=== PATIENT | female | born 1985 | race Caucasian/White ===

== ENCOUNTER 2020-12-24 14:54 | Emergency (ER) | payer OTHER, SELFPAY ==
--- NOTE | ~2020-12-24 | XR_ITS ---
EXAMINATION: XR chest 2V DATE: 12/24/2020 15:48 INDICATION: Cough and wheezing TECHNIQUE: PA and lateral views of the chest are obtained. COMPARISON: None available FINDINGS: The lungs are free of acute opacities. There is no pleural effusion or pneumothorax. The ca rdiomediastinal silhouette is normal. The visualized bones and soft tissues are unremarkable. IMPRESSION: 1. No acute cardiopulmonary abnormality. Reviewed, dictated and finalized at location A.
--- NOTE | 2020-12-24 15:17 | ED.URI ---
HPI - URI/Sore Throat General Chief Complaint: Upper Respiratory Infection Stated Complaint: sore throat,dizzy Time Seen by Provider: 12/24/20 15:17 Source: patient Mode of arrival: ambulatory Limitations: no limitations History of Present Illness HPI Narrative: 35-year-old female presents to the [facility] with complaints of sore throat, congestion and respiratory symptoms x3 weeks. Strong productive cough. States 3 days ago she lost her voice. States that she called off work. Denies Fevers but having chills. Related Data Allergies Allergy/AdvReac Type Severity Reaction Status Date / Time azithromycin Allergy Unknown Dyspnea / Verified 12/24/20 15:35 SOB Penicillins Allergy Unknown Unknown Verified 12/24/20 15:35 docusate AdvReac Unknown CAUSES Verified 12/24/20 15:35 CONSTIPATION Review of Systems Review of Systems: Narrative: CONSTITUTIONAL: Denies fever. reports chills, or sweats. EYES: Denies visual changes, redness, or discharge. ENT: Reports rhinorrhea, congestion, sore throat, or otalgia. CARDIOVASCULAR: Denies chest pain, palpitations, or edema. RESPIRATORY: Reports cough without dyspnea. GASTROINTESTINAL: Denies abdominal pain, nausea, vomiting, or diarrhea. MUSCULOSKELETAL: Denies back pain, joint pain, or myalgia. NEUROLOGIC: Denies headache, numbness, or weakness. PSYCHIATRIC: Denies anxiety or depression. All other systems reviewed are negative, except as documented in HPI. PMFSH Comments At the time of my signature, I reviewed and agree with the nursing past medical, surgical, social, and family history. There is no relevant family history pertinent to the patient complaint. Exam Narrative: Exam Narrative: GENERAL: This is a well-nourished, well-developed patient, in no apparent distress. HEAD: normocephalic, atraumatic. EYES: PERRL. Sclera clear/white. Vision is grossly intact. EARS: External ears normal, auditory canals clear and without drainage, TMs normal without perforation. Hearing grossly intact. NOSE: External nose normal with thick clear nasal discharge, nares with redness and injection. THROAT: Mucous membranes moist, posterior pharynx clear. NECK: Neck supple, non-tender without lymphadenopathy, masses or thyromegaly. CARDIOVASCULAR: Regular rate and rhythm without murmurs, gallops, or rubs. RESPIRATORY: Clear but diminished lower lobes to auscultation. Breath sounds equal bilaterally. No wheezes, rales, or rhonchi. GASTROINTESTINAL: Abdomen soft, non-tender, nondistended. SKIN: warm, Dry, intact with no suspicious lesions or rash, good texture and turgor. NEURO: awake, alert, and oriented to person, place and time. There were no obvious focal neurologic abnormalities. EXTREMITIES: No joint tenderness, effusion, or edema noted. . BACK: Nontender without deformity. Course Course Emergency Course: After breathing treatment patient states that she feels much better, voice returned Vital Signs Vital signs: Vital Signs Temperature 97.7 F 12/24/20 15:25 Pulse Rate 96 12/24/20 15:25 Respiratory Rate 18 12/24/20 15:25 Blood Pressure 110/78 12/24/20 15:25 Pulse Oximetry 96 12/24/20 15:25 Temperature 97.7 F 12/24/20 15:25 Pulse Rate 98 12/24/20 16:22 Respiratory Rate 20 12/24/20 16:22 Blood Pressure 110/78 12/24/20 15:25 Pulse Oximetry 98 12/24/20 16:22 Reviewed MDM - URI/Sore Throat MDM Narrative Medical decision making narrative: Discharge instructions reviewed with patient, as well as provided in writing per nursing staff. The instructions also include specific and strict return/GO TO THE ER as well as f/u information. All questions have been answered, and the patient deny any further questions with discharge and discharge plan. Differential Diagnosis Differential diagnosis: Likely upper respiratory infection, sinusitis, viral infection and bronchitis Lab Data Labs: Lab Results 12/24/20 12/24/20 Range/Units 15:19 15:50 SARS-CoV-2 RNA
[2020-12-24 15:25] VITALS: BP 110/78; PULSE 96; RESP 18; TEMP 36.5; O2SAT 96
[2020-12-24] MEDS: ALBUTEROL SULFATE NEB 2.5 MG/3 ML INH INHALATION (15:55)
[2020-12-24] MEDS: IPRATROPIUM BR 0.02% INH SOLN 0.5 MG/2.5 ML VIAL INHALATION (15:55)
[2020-12-24 16:22] VITALS: PULSE 98; RESP 20; O2SAT 98
[2020-12-25 19:43] LABS: SARS-CoV-2 RNA PCR Negative
== END 2020-12-24 16:30 | disposition home or self-care (01) ==
PROVIDERS: Emergency Provider Nurse Practitioner
DX: J32.9 Chronic sinusitis, unspecified (principal); J40 Bronchitis, not specified as acute or chronic; Z20.822 Contact with and (suspected) exposure to COVID-19
CPT/HCPCS: 71046; 87081; 87426; 87880; 94640; 99203; C9803; G0463; U0003; U0005

== ENCOUNTER 2025-03-19 18:48 | Emergency (ER) | payer OTHER, SELFPAY ==
--- OUTSIDE RECORDS SUMMARY | 2025-03-19 18:50 | XMS_ITS ---
Author Organization [facility]ly [facility] Address [address] [place] [address] Care Team Providers Care Secondary Special Education Teacher Name Role Phone TashScott hollidayhanie Primary Care Provider [phone] Jose Silva Unavailable [phone] REASON FOR VISIT WRU aT Social History PRAPARE Question Answer Notes Date Completed/Updated: 03/16/2025 What is your current housing situation? I do not have housing (staying with others, in a hotel, in a nursing home, living outside on the street, on a beach, or in a park) Are you worried about losing your housing? No What is the highest level of school that you have finished? More than high school What is your current work situation? Oth erwise unemployed but not seeking work (ex. student, retired, disabled, unpaid primary resident care associate) In the past year, have you o r any family members you live with been unable to get any of the following when it was really needed? Check all that apply Phone Has lack of transportation k ept you from medical appointments, meetings, work or from getting things needed for daily living? Yes, it has kept me from medical appointments or from getting my medications,Yes, it has kept me from non-medical meetings, appointments, work, or getting things needed for daily living How often do you see or talk to people that you care about and feel close to? (For example: talking to friends on the phone, visiting friends or family, going to yarsanism or club meetings) More than 5 times a week How stressed are you? Stress is when someone feels tense, nervous, anxious, or can\t sleep at night because their mind is troubled Quite a bit In the past year have you sp ent more than 2 nights in a row in a long-term, usp, alf center, or juvenile correctional facility? Yes What was your release date? 03/16/2025 Are you a refugee? I choose not to answer this q uestion What country are you from? I choose not to answe r this question Do you feel physically and e motionally safe where you currently live? No In the past year, have you b een afraid of your partner or ex-partner? No PRAPARE Score: 10 Encounters Encounter Location Date Provider Diagnosis [address] [address] 03/16/2025 Jose Silva Assessments Encounter Date Diagnosis (ICD Code) Assessment Notes Treatment Notes Treatment Clinical Notes Section Notes 03/16/2025 Other Clinician met w [facility] client to assess needs for residential services. Clinician gathered information regarding historical presentation of mental health and substance use symptoms including withdrawal, HIV Risk assessment, psychiatric hospitalization history and presenting concern. Clinician conducted PHQ9 and CSSRS assessments as well as social drivers of health screening for the purposes of identifying additional service needs. Plan Of Treatment Treatment Notes Assessment Notes Other Clinician met with ana enriquez to assess needs for residential services. Clinician gathered information regarding historical presentation of mental health and substance use symptoms including withdrawal, HIV Risk assessment, psychiatric hospitalization history and presenting concern. Clinician conducted PHQ9 and CSSRS assessments as well as social drivers of health screening for the purposes of identifying additional service needs. Progress Notes * Ellie ZHANGDOB: [birth year] (40 yo F)Acc No.[id number]:03/16/2025 UNLOCKED PROGRESS NOTE Patient: Ellie AYALA Provider: Bertin Silva :1985 A ge:40 Y S ex:Female Date:03/16/2025 Address:[address] [place], [place] [id number] Pcp:Gayle Brody Subjective: * Chief Complaints: * 1 . WRU aTBC. * HPI: D epression Screening: PHQ-9 L ittle interest or pleasure in doing things N ot at all, F eeling down, depressed, or hopeless N ot at all, T rouble falling or staying asleep, or sleeping too much S everal days, F eeling tired or having little energy N ot at all, P oor appetite or overeating N ot at all, F eeling bad about yourself or that you are a failure, or have let yourself or your family down N ot at all, T rouble concentrating on things, such as reading the newspaper or watching television N ot at all, M oving or speaking so slowly that other people could have noticed; or the opposite, being so fidgety or restless that you have been moving around a lot more than usual N ot at all, T houghts that you would be better off or of hurting yourself in some way N ot at all, T otal Score 1 ,?Interpretation M inimal Depression. S creening: [place] Suicide Severity Rating Scale (LF) D o you want to initiate with S creener form, 1 . Wish to be : Have you wished you were or wished you could go to sleep and not wake up? N o, 2 . Suicidal Thoughts: Have you actually had any thoughts of killing yourself? N o, 6 . Suicide Behavior Question: Have you ever done anything,started to do anything, or prepared to end your life? N o, I nterpretation: L ow Risk. P sychiatric Assessment - Current Symptoms: Primary concern today A dmitting today for [facility] . O [place] of Mental Health Symptoms A nxiety, Manic depressive , insonmina. . H istory of Psychiatric Hospitalizations x . H istory of Psychiatric and Behavioral Health Treatment P ast treament on medication. S ubstance Use: Current Use Patterns x . S ubstance of Choice x .?History of substance use I CE was in long-term and came, off and on for years. Clean for [address] treatment. In long-term for 2 months. . H x of Withdrawal n ausea, diahrea, and shakes. . H IV Risk Assessment Screening: Required for Residential Admits. A ssessment of Social Determinants of Health::: Has A PRAPARE Been Completed In The Past Year? H as a PRAPARE Been Completed In The Past Year? Y es, W as It Completed Today Using SmartForm? N o.? a TBC For Substance Use Services: Who Is Your Primary Care Provider? D o You Have A Primary Care Provider? N o Est with [facility], D ate of last physical exam 0 03/2025. D o You Have A Psychiatric Provider? D o You Have A Psychiatric Provider? N o Est with [facility]. D o You Have Any Other Professional Supports? D o You Have Any Other Professional Supports Y es.?Consent Forms Completed C onsent Forms C onsent To Treat, Health Care Providers, Emergency Contact, Probation/[place]. * Medical History: * Social History: S ocial Determinants: Edinson Patterson ate Completed/Updated: 0 03/16/2025, W hat is your current housing situation? I do not have housing (staying with others, in a hotel, in a nursing home, living outside on the street, on a beach, or in a park), A re you worried about losing your housing? N o, W hat is the highest level of school that you have finished? M ore than high school, W hat is your current work situation? O therwise unemployed but not seeking work (ex. student, retired, disabled, unpaid primary resident care associate), I n the past year, have you or any family members you live with been unable to get any of the following when it was really needed? Check all that apply P madeline, H as lack of transportation kept you from medical appointments, meetings, work or from getting things needed for daily living? Y es, it has kept me from medical appointments or from getting my medications,Yes, it has kept me from non-medical meetings, appointments, work, or getting things needed for daily living, H ow often do you see or talk to people that you care about and feel close to? (For example: talking to friends on the phone, visiting friends or family, going to yarsanism or club meetings) M ore than 5 times a week, H ow stressed are you? Stress is when someone feels tense, nervous, anxious, or can\t sleep at night because their mind is troubled Q uite a bit, I n the past year have you spent more than 2 nights in a row in a long-term, usp, alf center, or juvenile correctional facility? Y es, W hat was your release date? 0 03/16/2025, A re you a refugee? I choose not to answer this question, W hat country are you from? I choose not to answer this question, D o you feel physically and emotionally safe where you currently live? N o, I n the past year, have you been afraid of your partner or ex-partner? N o, P RAPARE Score: 1 0. Objective: * Vitals: * Examination: M ental Status Exam: ATTENTION AND CONCENTRATION x . APPEARANCE x . ATTITUDE AND BEHAVIOR x . EYE CONTACT x . AFFECT x . MOOD x . INSIGHT x . JUDGMENT x . G eneral Examination: E xplanation of presentation/need (staff to free text). Assessment: Plan: * Treatment: * Procedure Codes: 9 0791 PSYCH DIAGNOSTIC EVALUATION, Modifiers: AJ , T1016 Case management, CHS08 aT Service, CHS11 Insurance Application Assistance, CHS12 Housing Assistance, CHS13 Referring to Basket Maker * * Electronic signature of Madelyn Silva on 03/19/2025 at 06:50 PM CDT Sign off status: Pending * Provider: Bertin Silva Date: 0 03/16/2025 Generated for Bebe francisco/Carmen/Efren on: 0 03/19/2025 06:50 PM CDT History and Physical Notes * HPI (History of Present Illness) Category Sub-Category Detail Notes Category Not es Depression Screening PHQ-9 Little inte rest or pleasure in doing things: Not at all Feeling down, depressed, or hopeless: No t at all Trouble falling or staying asleep, or sl eeping too much: Several days Feeling tired or having little energy: N ot at all Poor appetite or overeating: Not at all Feeling bad about yourself o r that you are a failure, or have let yourself or your family down: Not at all Trouble concentrating on thi ngs, such as reading the newspaper or watching television: Not at all Moving or speaking so slowly that other people could have noticed; or the opposite, being so fidgety or restless that you have been moving around a lot more than usual: Not at all Thoughts that you would be b dari off or of hurting yourself in some way: Not at all Total Score: 1 Interpretation: Minimal Depression Psychiatric Assessment - Current Symptoms Primary concern today Admitting today for [facility] 28 day program Overview of Mental Health Symptoms Anxie ty, Manic depressive , insonmina. History of Psychiatric Hospitalizations x History of Psychiatric and B ehavioral Health Treatment Past treament on medication Substance Use History of substance use [place] was in long-term and came, off and on for years. Clean for [address] treatment. In long-term for 2 months. Hx of Withdrawal nausea, diahrea, and shakes. Substance of Choice x Current Use Patterns x Screening [place] Suicide Sev erity Rating Scale (LF) Do you want to initiate with: Screener form 1. Wish to be : Have you wished you were or wished you could go to sleep and not wake up?: No 2. Suicidal Thoughts: Have you actually had any thoughts of killing yourself?: No 6. Suicide Behavior Question: Have you ever done anything,started to do anything, or prepared to end your life?: No Interpretation:: Low Risk HIV Risk Assessment Screening Required for Residential Admits Assessment of Social Determinants of Health:: Has A PRAPARE Been Completed In The Past Year? Has a PRAPARE Been Completed In The Past Year?: Yes Was It Completed Today Using [employer]?: No aT For Substance Use Services Who Is Your Primary Care Provider? Do You Have A Primary Care Provider?: No Est with [facility] Date of last physical exam: 03/2025 Do You Have A Psychiatric Provider? Do Y ou Have A Psychiatric Provider?: No Est with [facility] Do You Have Any Other Profes sional Supports? Do You Have Any Other Professional Supports: Yes Consent Forms Completed Consent Forms: C onsent To Treat, Health Care Providers, Emergency Contact, Probation/[place] Examination Category Sub-Category Detail Notes Category Not es General Examination Explanat ion of presentation/need (staff to free text) Mental Status Exam ATTENTION AND CONCENTRATION x APPEARANCE x ATTITUDE AND BEHAVIOR x EYE CONTACT x AFFECT x MOOD x INSIGHT x JUDGMENT x
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
--- OUTSIDE RECORDS SUMMARY | 2025-03-19 18:50 | XMS_ITS | Clinical Summary ---
Author Organization [facility] Address [address] [place] [address] Care Team Providers Care Carburetor Mechanic Name Role Phone Unavailable Primary Care Provider Unavailabl e Source Comments [facility],non-owned Affiliates and Associated Physician Practices is amultiple site organization consisting of ambulatory clinics and hospital sitesin [place], [place], [place] and [place]. This disclosure is being madepursuant to the Care Everywhere program and may not contain all information available regarding this patient. Last updated 18.[facility] [employer] Social History Tobacco Use Types Packs/Day Years Used Date Smoking Tobacco: Never Assessed Comments Unknown Sex and Gender Information Value Date Recorded Sex Assigned at Female 08/10/2021 3:25 AM LAP MAKER Legal Sex Female 5:53 PM LAP MAKER Gender Identity Female 08/10/2021 3:25 AM LAP MAKER Sexual Orientation Straight 08/10/2021 3: 25 AM LAP MAKER Plan of Treatment Health Maintenance Due Date Last Done Comments LIPID TESTING 1985 MAMMOGRAM 1985 HIV SCREENING 02/02/2000 HEPATITIS C SCREENING 01/28/2003 DTAP/TDAP/TD VACCINES (1 - Tdap) 02/02/2004 HEPATITIS B VACCINE (1 of 3 - 19+ 3-dose series) 02/02/2004 COVID-19 VACCINE (2023-2 5 season) 2024 DEPRESSION SCREENING 09/15/2024 INFLUENZA VACCINE (Season Ended) 2025 ZOSTER VACCINE (1 of 2) 2035 HIB VACCINE Aged Out No longer eligi ble based on patient's age to complete this topic HPV VACCINE Aged Out No longer eligi ble based on patient's age to complete this topic MENINGOCOCCAL (Group B) VACC INE SHARED DECISION-MAKING Aged Out No longer eligibl e based on patient's age to complete this topic MENINGOCOCCAL GROUPS A/C/Y/W VACCINE Aged Out No longer eligible b ased on patient's age to complete this topic PNEUMOCOCCAL VACCINE Aged Out No long er eligible based on patient's age to complete this topic [place] [address] [address] [place] [address] MEDICAID - OUT OF [facility]
--- OUTSIDE RECORDS SUMMARY | 2025-03-19 18:50 | XMS_ITS | Patient Health Record ---
Author Organization [facility] Address [address] [place] [address] Care Team Providers Care Hand Scraper Name Role Phone Gayle Brody Primary Care Provider Jose Silva Unavailable Allergies Allergen (clinical drug ingredient) Drug/Non Drug Allergy documented on EMR Reaction Allergy Type Onset Date Status diphenhydramine Benadryl (uncoded) Hives Allergy Active doxycycline Doxcycline (uncoded) Dizziness Allergy Active azithromycin Zpak (uncoded) Swelling, rash Allergy Active Results Component Value Reference Range Notes 14 Panel Urine Drug Screen Reviewed date:03/16/2025 12:02:25 PM Interpretation: Performing Lab: Notes/Report: THC neg VAMSI neg MOP (OPI) neg AMP neg MET neg BAR neg BZO neg MDMA neg MTD neg OXY neg PCP neg BUP neg TCA neg FTY neg Breathalyzer Reviewed date:03/16/2025 12:00:31 PM Interpretation: Performing Lab: Notes/Report: HERVE 0.000 Test, Urine Reviewed date:03/16/2025 12:01:05 PM Interpretation: Performing Lab: Notes/Report: Test, Urine negative Negative - Negative Reason For Referral No Information Medications Medication SIG (Take, Route, Frequency, Duration) Notes Start Date End Date Status Sulfamethoxazole-Trimetho prim 800-160 MG 1 tablet Orally twice a day; Duration: 7 days Active Multi Vitamin - 1 tablet Orally Once a day; Duration: 30 days 03/16/2025 Active Melatonin 5 MG 1 tablet at bedtime as needed Orally Once a day; Duration: 30 days 03/16/2025 Active Nicotine 14 MG/24HR 1 patch to skin Transdermal Once a day, removing at bedtime; Duration: 14 days 03/16/2025 Active hydrOXYzine Pamoate 25 MG 1-2 capsules O rally every 4 hours as needed for anxiety, agitation, or inability to sleep. Do not give within 4 hours of diphenhydramine.; Duration: 30 days 03/16/2025 Active Acetaminophen 500 MG 1 tablet as needed Orally every 6 hrs Active Nicotine Polacrilex 4 MG Chew 1 piece as needed for nicotine cravings Mouth/Throat up to every hour (max of 20 pieces per day); Duration: 7 days 03/16/2025 Active Acetaminophen Extra Strength 1000 MG/30ML as directed Orally Not-Taking Nicotine Polacrilex 4 MG 1 lozenge as ne eded for nicotine cravings Mouth/Throat Up to once per hour (maximum of 15 lozenges per day); Duration: 7 days 03/16/2025 Active Social History PRAPARE Question Answer Notes Date Completed/Updated: 03/16/2025 What is your current housing situation? I do not have housing (staying with others, in a hotel, in a senior living, living outside on the street, on a beach, or in a park) Are you worried about losing your housing? No What is the highest level of school that you have finished? More than high school What is your current work situation? Oth erwise unemployed but not seeking work (ex. 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 Stress is when someone feels tense, nervous, anxious, or can\t sleep at night because their mind is troubled Quite a bit In the past year have you sp ent more than 2 nights in a row in a half-way, half-way, long term center, or juvenile correctional facility? Yes What [...] partner or ex-partner? No PRAPARE Score: 10 Problems Problem Type SNOMED Code ICD Code Onset Dates Problem Status W/U Status Risk Notes Problem Tobacco user (313579737) Nicotine dependence, unspecified, uncomplicated (F17.200) Active confirmed Problem Adult general medical exam (Z00.00) Active confirmed Vital Signs Heart Rate 88 /min 03/16/2025 Temperature 98.7 degrees Fahrenheit 03/16/2025 Respiratory Rate 20 /min 03/16/2025 Blood pressure diastolic 64 mm Hg 03/16/2025 Oximetry 99 % 03/16/2025 Height 69 in 03/16/2025 Blood pressure systolic 98 mm Hg 03/16/2025 Weight 135.6 lbs 03/16/2025 BMI 20.02 kg/m2 03/16/2025 Encounters Encounter Location Date Provider Diagnosis [facility], [facility] [address] [place] [address] 03/16/2025 Jose Silva [place] [address] [place] [address] 03/16/2025 Gayle Brody Adult general medical exam Z00.00 ; Nicotine dependence, unspecified, uncomplicated F17.200 and Soft tissue infection L08.9 Assessments Encounter Date Diagnosis (ICD Code) Assessment Notes Treatment Notes Treatment Clinical Notes Section Notes 03/16/2025 Nicotine dependence, unspecified, uncomplicated (ICD-10 - F17.200) SUPR Programs: Based on an evaluation of [facility] Patient Placement Criteria, a recommendation for placement in Level III treatment is indicated and approved. Confirmation of diagnosis is documented in the initial treatment plan.Admit to the [facility] and initiate standing/protocol orders: The following PRN medications may be self-administered by patients under the supervision of approved staff or administered by nursing staff: Ibuprofen 200mg, 2-4 tablets by mouth (with food) every 6 hours as needed for pain (unless on lithium). (NOTE: Ibuprofen and acetaminophen may be given together, but alternating is recommended for continuous pain relief. Guaifenesin 400 mg, 1 tablet by mouth every four hours as needed for cough and chest congestion (take with large glass of water). Loratadine 10 mg, 1 tablet by mouth daily as needed for allergies, watery itchy eyes, or sinus drainage. Throat Lozenges, up to 4 tablets by mouth every three to four hours as needed for sore throat. Antacid tablets, 1-2 tablets by mouth every one to two hours as needed for indigestion or heart burn. If the client prefers liquid, could use: Liquid Antacid : 1 ounce by mouth up to four times daily as needed for indigestion or heartburn Omeprazole 20mg, 1 capsule by mouth once daily for 14 days for frequent heartburn (frequent heartburn is more than 2 episodes per week). Do not exceed 14 days. Do not give to client already taking a proton-pump inhibitor: esomeprazole (Nexium), lansoprazole (Prevacid), pantoprazole (Protonix), rabeprazole (Aciphex), dexlansoprazole (Dexilant) Zofran ODT disintegrating (under the tongue) 4 mg, 1-2 tablets every 8 hours as needed for nausea/vomiting. Milk of Magnesia (MOM): 1 ounce (30 milliliters) by mouth every day as needed for constipation. OR Miralax: Stir and fully dissolve 17 grams (1 packet or 1 capful to measured line) in any 4 to 8 ounces of beverage then drink once daily for constipation. Do not use for more than 7 days. OR Docusate 100 mg, 1 capsule twice daily as needed for constipation Hydrocortisone 1% Cream, apply topically (to the skin) to the affected area up to three times daily as needed for itching or inflammation (avoid eyes and genitals). 2% Antifungal Cream, apply topically (to the skin) as directed as needed to affected areas for athlete's foot or jock itch. Triple Antibiotic Ointment, apply topically (to the skin) up to three times daily as needed for minor cuts and scrapes. Carmex or Chapstick, apply topically (to the skin) as needed for chapped lips and skin. Orajel, apply to affected areas as needed for mouth or tooth pain. Lubricating Eye Drops, instill 1-2 drops to the affected eye(s) as needed for dry/irritated eye(s). Hemorrhoid medications, apply to affected area according to directions as needed for hemorrhoid discomfort and itch. Nix (Permethrin 1%) cream 2 ounces, apply topically (to the skin) as directed as needed for head lice. Sunscreen 30 SPF, Apply to exposed skin prior to exposure to sun. The following PRN medications must be approved by nursing staff before self-administration by patients: Diphenhydramine 25 mg, 2 tablets by mouth every 4 hours as needed for allergic reaction or itchy rash. Caution: Do not use hydroxyzine within 4 hours of diphenhydramine and vice versa. Loperamide 2 mg capsules, may give two capsules by mouth for the initial dose, followed by one capsule up to 3 times a day as needed for diarrhea. Acetaminophen 500 mg, 1 - 2 tablets by mouth every six hours as needed for pain. (NOTE: Ibuprofen and acetaminophen may be given together, but alternating is recommended for continuous pain relief). Oxygen-May administer oxygen 2L/min via nasal cannula if O2 saturation is less than 92%, AND client complains of shortness of breath. Target O2 saturation is 94-98%. Caution: Remember too much oxygen can be detrimental to a client with COPD. Oxygen is a drug and should be delivered by trained staff only. Nurses may remove superficial splinters and sutures from skin lacerations. May apply gauze or bandages to any weeping wounds. Contact nursing if there is pus, a foul odor, increased pain/redness/swelli ng, or if soaking through bandages. 03/16/2025 Adult general medical exam (ICD-10 - Z00.00) SUPR Programs: Based on an evaluation of [facility] Patient Placement Criteria, a recommendation for placement in Level III treatment is indicated and approved. Confirmation of diagnosis is documented in the initial treatment plan.Admit to the [facility]idential [facility] and initiate standing/protocol orders: The following PRN medications may be self-administered by patients under the supervision of approved staff or administered by nursing staff: Ibuprofen 200mg, 2-4 tablets by mouth (with food) every 6 hours as needed for pain (unless on lithium). (NOTE: Ibuprofen and acetaminophen may be given together, but alternating is recommended for continuous pain relief. Guaifenesin 400 mg, 1 tablet by mouth every four hours as needed for cough and chest congestion (take with large glass of water). Loratadine 10 mg, 1 tablet by mouth daily as needed for allergies, watery itchy eyes, or sinus drainage. Throat Lozenges, up to 4 tablets by mouth every three to four hours as needed for sore throat. Antacid tablets, 1-2 tablets by mouth every one to two hours as needed for indigestion or heart burn. If the client prefers liquid, could use: Liquid Antacid : 1 ounce by mouth up to four times daily as needed for indigestion or heartburn Omeprazole 20mg, 1 capsule by mouth once daily for 14 days for frequent heartburn (frequent heartburn is more than 2 episodes per week). Do not exceed 14 days. Do not give to client already taking a proton-pump inhibitor: esomeprazole (Nexium), lansoprazole (Prevacid), pantoprazole (Protonix), rabeprazole (Aciphex), dexlansoprazole (Dexilant) Zofran ODT disintegrating (under the tongue) 4 mg, 1-2 tablets every 8 hours as needed for nausea/vomiting. Milk of Magnesia (MOM): 1 ounce (30 milliliters) by mouth every day as needed for constipation. OR Miralax: Stir and fully dissolve 17 grams (1 packet or 1 capful to measured line) in any 4 to 8 ounces of beverage then drink once daily for constipation. Do not use for more than 7 days. OR Docusate 100 mg, 1 capsule twice daily as needed for constipation Hydrocortisone 1% Cream, apply topically (to the skin) to the affected area up to three times daily as needed for itching or inflammation (avoid eyes and genitals). 2% Antifungal Cream, apply topically (to the skin) as directed as needed to affected areas for athlete's foot or jock itch. Triple Antibiotic Ointment, apply topically (to the skin) up to three times daily as needed for minor cuts and scrapes. Carmex or Chapstick, apply topically (to the skin) as needed for chapped lips and skin. Orajel, apply to affected areas as needed for mouth or tooth pain. Lubricating Eye Drops, instill 1-2 drops to the affected eye(s) as needed for dry/irritated eye(s). Hemorrhoid medications, apply to affected area according to directions as needed for hemorrhoid discomfort and itch. Nix (Permethrin 1%) cream 2 ounces, apply topically (to the skin) as directed as needed for head lice. Sunscreen 30 SPF, Apply to exposed skin prior to exposure to sun. The following PRN medications must be approved by nursing staff before self-administration by patients: Diphenhydramine 25 mg, 2 tablets by mouth every 4 hours as needed for allergic reaction or itchy rash. Caution: Do not use hydroxyzine within 4 hours of diphenhydramine and vice versa. Loperamide 2 mg capsules, may give two capsules by mouth for the initial dose, followed by one capsule up to 3 times a day as needed for diarrhea. Acetaminophen 500 mg, 1 - 2 tablets by mouth every six hours as needed for pain. (NOTE: Ibuprofen and acetaminophen may be given together, but alternating is recommended for continuous pain relief). Oxygen-May administer oxygen 2L/min via nasal cannula if O2 saturation is less than 92%, AND client complains of shortness of breath. Target O2 saturation is 94-98%. Caution: Remember too much oxygen can be detrimental to a client with COPD. Oxygen is a drug and should be delivered by trained staff only. Nurses may remove superficial splinters and sutures from skin lacerations. May apply gauze or bandages to any weeping wounds. Contact nursing if there is pus, a foul odor, increased pain/redness/swelli ng, or if soaking through bandages. 03/16/2025 Soft tissue infection (ICD-10 - L08.9) 03/16/2025 Other Clinician met w ith client to assess needs for residential services. Clinician gathered information regarding historical presentation of mental health and substance use symptoms including withdrawal, HIV Risk assessment, psychiatric hospitalization history and presenting concern. Clinician conducted PHQ9 and CSSRS assessments as well as social drivers of health screening for the purposes of identifying additional service needs. Plan Of Treatment Future Test Test Name Order Date HIV Screen *HIV 1, 2 Ab, p24 Ag ([id number]) 03/16/2025 CBC With Differential/Platelet* 03/16/20 25 CMP 14 Comprehensive Metabolic Panel* QuantiFERON-TB Gold Plus ([id number]) 2024 Insurance Providers Payer Name Payer Address Payer Phone Subscriber Number Group Number Insured Name Patient Relationship to Insured Coverage Start Date Coverage End Date [facility] Attn Claims Department [address] [place] [address] [id number] Mavis novak Ellie Self - patient is the insured 5
--- OUTSIDE RECORDS SUMMARY | 2025-03-19 18:50 | XMS_ITS | Clinical Summary ---
Author Organization [facility] Address [address] [place] [address] Phone Care Team Providers Care Gateman Name Role Phone Janice Hurtado PAC Primary Care Pro vider Allergies Active Allergy Reactions Criticality Noted Date Comments Azithromycin Swelling Low 12/24/2016 Reaction: SWELLING Docusate Calcium Swelling 12/24/2016 Docusate Hives,Swelling Medium 01/15/2023 Penicillins Hives,Rash Medium 03/14/2018 Medications busPIRone (BUSPAR) 10 MG Tablet Take 1 Tablet by mouth 2 times daily. 60 Tablet 1 01/15/2023 Active Active Problems Problem Noted Date Diagnosed Date Homeless 01/15/2023 Bipolar 1 disorder 01/15/2023 Anxiety 01/15/2023 Skin infection 01/15/2023 Drug use 01/15/2023 Hepatitis C virus infection without hepatic coma 01/15/2023 Family History Medical History Relation Name Comments Cancer Father Cancer Mother Lupus Mother Relation Name Status Comments Father Alive Mother Alive Social History Tobacco Use Types Packs/Day Years Used Date Smoking Tobacco: Some Days Cigarettes Smokeless Tobacco: Never Tobacco Cessation:Ready to Q uit: No; Counseling Given: No Alcohol Use Standard Drinks/Week Comments Not Currently 0 (1 standard drink = 0.6 oz pur e alcohol) PHQ-2 Answer Date Recorded Total Score - Questions 1-9 20 05/11/2022 Education Answer Date Recorded What is the highest level of school you have completed or the highest degree you have received? 12th grade 01/15/2023 Sexually Active Control Partners Comments Yes Comments No Sex and Gender Information Value Date Recorded Sex Assigned at Not on file Legal Sex Female 10:25 PM CDT Gender Identity Not on file Sexual Orientation Not on file Last Filed Vital Signs Vital Sign Reading Time Taken Comments Blood Pressure 120/68 01/15/2023 10:58 AM CDT Pulse 95 01/15/2023 10:58 AM CDT Temperature 36.7 C (98.1 F) 01/15/2023 10:58 AM CDT Respiratory Rate 12 01/15/2023 10:58 AM CDT Oxygen Saturation 97% 01/15/2023 10:58 AM CDT Inhaled Oxygen Concentration - - Weight 60.8 kg (134 lb) 01/15/2023 10:58 AM CDT Height 176.5 cm (5' 9.5) 01/15/2023 10:58 AM CD T Body Mass Index 19.5 01/15/2023 10:58 AM CDT Plan of Treatment Health Maintenance Due Date Last Done Comments Mammogram 1985 Human Papillomavirus (HPV) Immunization (1 - 3-dose series) 02/02/2000 Hepatitis B Immunization (1 of 3 - 19+ 3-dose series) 02/02/2004 SARS-COV-2 Immunization ( season) 2024 Discussion re Starting/Frequency of Mammograms 2025 Influenza Immunization (Seas on Ended) 2025 07/22/2018, 08/26/2016, 08/06/2015 Pap Smear 05/29/2025 05/29/2022 Cervical Cancer Screening (CCS) 05/29/2027 HPV/Cotest 05/29/2027 05/29/2022 Respiratory Syncytial Virus (RSV) Immunization (Adult) (1 - 1-dose 75+ series) 02/02/2060 DTaP/Tdap/Td Immunization Discontinued 09/15/2011 TdaP Immunization Completed 09/15/2011 Meningococcal Immunization (ACWY) Aged Out No longer eligible based on patient's age to complete this topic Pneumococcal Immunization Combined Aged Out No longer eligible based on patient's age to complete this topic Rotavirus Immunization Aged Out No lo nger eligible based on patient's age to complete this topic Procedures Procedure Name Priority Date/Time Associated Diagnosis Comments HUMAN PAPILLOMA VIRUS (HPV) 05/29/2022 12:00 AM CDT PATHOLOGY CYTOLOGY COMPUTER SPECIALIST 05/29/2022 12:00 AM CDT from Last 3 Months or Most Recently Relevant to Health Maintenance Results * PATHOLOGY CYTOLOGY COMPUTER SPECIALIST (05/29/2022 12:00 AM CDT) 05/29/2022 us Provider Scan PATHOLOGY/CYTOLOGY ORDERABLES Fi nal Result SCAN * HUMAN PAPILLOMA VIRUS (HPV) (05/29/2022 12:00 AM CDT) 05/29/2022 us Provider Scan LAB SEND OUTS Final Result Performing Organization Address City/[facility]/ZIP Co de Phone Number SCAN from Last 3 Months or Most Recently Relevant to Health Maintenance Insurance MEDICAID [employer] Care Teams Gateman Relationship Specialty Start Date End Date Janice Hurtado PAC [address] [place] [address] PCP - General Physician Cessation Systems Outreach Specialist 01/15/23
--- OUTSIDE RECORDS SUMMARY | 2025-03-19 18:50 | XMS_ITS | Clinical Summary ---
Author Organization [facility] Address [address] [place] [address] Care Team Providers Care Paint Pourer Name Role Phone Corrie Monson NP Primary Care Provider [phone] Allergies Active Allergy Reactions Criticality Noted Date [...] (05/31/2022): Added automatically from request for surgery [id number] Chronic pelvic pain in female 05/31/2022 Overview (05/31/2022): Added automatically from request for surgery [id number] Endometriosis 05/31/2022 Overview (05/31/2022): Added automatically from request for surgery [id number] Accidental drug overdose 07/22/2018 Assessment & Plan (07/22/2018 5:59 AM LEADERSHIP DEVELOPMENT INSTRUCTOR): Patient with extensive history of drug abuse. [...] 07/22/2018 Assessment & Plan (07/22/2018 5:59 AM LEADERSHIP DEVELOPMENT INSTRUCTOR): She had been on trazodone. Currently is heavily sedated. Will hold trazodone for now Drug abuse 07/22/2018 Assessment & Plan (07/22/2018 6:02 AM LEADERSHIP DEVELOPMENT INSTRUCTOR): Patient with known history of multiple drug abuse. Will get social work consult Needs to be discussed with the patient for possible referral to rehab treatment when she more awake and not sedated. Altered mental status Immunizations Immunization Administration Dates Next Due Influenza, Quadrivalent, Spl it, Preservative Free, Intramuscular 07/22/2018 Surgical History Surgery Date Site/Laterality Comments SECTION TUBAL LIGATION Medical History Medical History Date Comments Anxiety Depression History of transfusion Motion sickness Social History Tobacco Use Types Packs/Day Years [...] on file Legal Sex Female 4:12 PM LEADERSHIP DEVELOPMENT INSTRUCTOR Gender Identity Female 12/17/2021 2:46 PM CDT Sexual Orientation Straight 12/17/2021 2: 46 PM CDT Obstetrics History Last Filed Vital Signs Vital Sign Reading [...] 06/24/2024 9:39 PM CDT Plan of Treatment Health Maintenance Due Date Last Done Comments Breast Cancer Screening-Mammogram 1985 Depression Screening 1985 Varicella Vaccines (1 of 2 - 13+ 2-dose series) 1998 Hepatitis B Screening 2003 Regular Well Visit/Exam 18-64 2003 Pneumococcal vaccine <65 (1 of 2 - PCV) 02/02/2004 DTaP/Tdap/Td Vaccine (2 - Td or Tdap) 09/15/2021 09/15/2011 Cervical Cancer Screening 05/29/2023 05/29/2022 Influenza Vaccine (Season Ended) 2025 07/22/2018, 08/26/2016, 08/06/2015 Hepatitis C Screening Completed 07/21/2018 , 01/26/2015 HPV Vaccines Aged Out No longer eligi ble based on patient's age to complete this topic Procedures Procedure Name Priority Date/Time Associated Diagnosis Comments PAP AND HIGH RISK HPV, REFLEX TO GENOTYPING Routine 05/29/2022 4:00 PM CDT Abnormal uterine bleeding HEPATITIS PANEL, ACUTE Routine 07/21/2018 9:43 PM LEADERSHIP DEVELOPMENT INSTRUCTOR from Last 3 Months or Most Recently Relevant to Health Maintenance Results * (ABNORMAL) Pap and High Risk HPV, reflex to Genotyping (05/29/2022 4:00 PM CDT) Thin prep (Pap test) 05/29/2022 4:00 PM CDT 05/29/2022 5:28 PM CDT Narrative PATHOLOGY [facility] - 06/06/2022 2:00 PM CDT EPIC results best viewed via link to PDF [facility] Norma Mims [facility] [place] [address] Note to Patients: This report may contain [...] Gender: F : 1985 (Age: 37) Address: [address] [place] [address] [facility] #: [id number] Service: Laboratory Location: Patient Type: [facility] SPECIMEN Taken: 05/29/2022 Received: 05/29/2022 Accessioned: 05/29/2022 [...] 68. This HPV test was performed at [facility] in [place], [place] utilizing the Gen-Probe Aptima assay. axwe/06/06/2022 [...] mass. The HPV test was performed by [facility], [address] [place] [address]. Report Images and scanned documents, if included only viewable in PDF version The performance characteristics of some immunohistochemical stains, in-situ hybridization and fluorescence in-situ hybridization tests and immunophenotyping by flow cytometry cited in this report (if any) were determined by the Surgical Pathology Department at [facility] as part of an ongoing housing quality standard inspector program and in compliance with federally mandated [...] determined by the Surgical Pathology Department of [facility]. It has not been cleared or approved by the U. S. Food and Drug Administration. Ela Amaro MD LAB CYTOLOGY ORDERABLES Final Result PATHOLOGY [facility] 3rd Floor [place], [place] [phone] * (ABNORMAL) Hepatitis panel, acute (07/21/2018 9:43 PM LEADERSHIP DEVELOPMENT INSTRUCTOR) Hep A IgM Negative Negative [facility] ([place]) Comment:Testing performed by : [facility], [address] [place] [address], [id number] Hep B core IgM Negative Negative [facility] ([place]) Comment:Testing performed by : [facility], [address] [place] [address], [id number] Hep C Ab Positive(A) Negative [facility] ([place]) Comment:Testing performed by : [facility], [address] [place] [address], [id number] HepBsAg Negative Negative [facility] ([place]) Comment:Testing performed by : [facility], [address] [place] [address], [id number] Blood specimen (specimen) 07/21/2018 9:43 PM LEADERSHIP DEVELOPMENT INSTRUCTOR 07/22/2018 9:44 AM LEADERSHIP DEVELOPMENT INSTRUCTOR Narrative [facility] ([place]) - 07/22/2018 10:32 AM LEADERSHIP DEVELOPMENT INSTRUCTOR Chris Mills MD LAB MICROBIOLOGY - GENERAL OR DERABLES Final Result [facility] ([place]) 1 [facility] Department [place] [address] from Last 3 Months or Most Recently Relevant to Health Maintenance Insurance IDPA [facility] Advance Directives For more information, please contact: [phone] * Full Code (Latest Code Status on File) Date Activated Date Inactivated Comments 07/21/2018 9:16 PM 07/23/2018 2:13 AM * Full Code Date Activated Date Inactivated Comments 07/21/2018 4:28 PM 07/21/2018 9:16 PM Care Teams Paint Pourer Relationship Specialty Start Date End Date Corrie Monson V., CHAPIS [address] [facility] [address] MCKENNA B [facility] [address] [place] [address] [facility] - General 08/06/21
[2025-03-19 18:57] VITALS: BP 119/60; PULSE 93; RESP 16; TEMP 36.9; O2SAT 98
--- OUTSIDE RECORDS SUMMARY | 2025-03-19 22:19 | XMS_ITS | Clinical Summary ---
Author Organization [facility] Address [address] [place] [address] Phone Care Team Providers Care Retail Stock Clerk Name Role Phone Janice Hurtado PAC Primary [...] (HPV) 05/29/2022 12:00 AM CDT PATHOLOGY CYTOLOGY [facility] 05/29/2022 12:00 AM CDT from Last 3 Months or Most Recently Relevant to Health Maintenance Results * PATHOLOGY CYTOLOGY [facility] (05/29/2022 12:00 AM CDT) 05/29/2022 us Provider Scan PATHOLOGY/CYTOLOGY ORDERABLES Fi nal Result SCAN * HUMAN PAPILLOMA VIRUS (HPV) (05/29/2022 12:00 AM CDT) 05/29/2022 us Provider Scan LAB SEND OUTS Final Result Performing Organization Address City/[facility]/ZIP Co de Phone Number SCAN from Last 3 Months or Most Recently Relevant to Health Maintenance Insurance MEDICAID [facility] Care Teams Retail Stock Clerk Relationship Specialty Start Date End Date Janice Hurtado PAC [address] [place] [address] PCP - General Physician Equipment Maintenance Supervisor 01/15/23
--- OUTSIDE RECORDS SUMMARY | 2025-03-19 22:19 | XMS_ITS | Clinical Summary ---
Author Organization [facility] Address [address] [place] [address] Care Team Providers Care Termite Control Technician Name Role Phone Corrie Monson NP Primary [...] (05/31/2022): Added automatically from request for surgery [id number] Chronic pelvic pain in female 05/31/2022 Overview (05/31/2022): Added automatically from request for surgery [id number] Endometriosis 05/31/2022 Overview (05/31/2022): Added automatically from request for surgery [id number] Accidental drug overdose 07/22/2018 Assessment & Plan (07/22/2018 5:59 AM RECRUITER SPECIALIST): Patient with extensive history of drug abuse. [...] 07/22/2018 Assessment & Plan (07/22/2018 5:59 AM RECRUITER SPECIALIST): She had been on trazodone. Currently is heavily sedated. Will hold trazodone for now Drug abuse 07/22/2018 Assessment & Plan (07/22/2018 6:02 AM RECRUITER SPECIALIST): Patient with known history of multiple drug [...] on file Legal Sex Female 4:12 PM RECRUITER SPECIALIST Gender Identity Female 12/17/2021 2:46 PM CDT [...] HEPATITIS PANEL, ACUTE Routine 07/21/2018 9:43 PM RECRUITER SPECIALIST from Last 3 Months or Most Recently Relevant to Health Maintenance Results * (ABNORMAL) Pap and High Risk HPV, reflex to Genotyping (05/29/2022 4:00 PM CDT) Thin prep (Pap test) 05/29/2022 4:00 PM CDT 05/29/2022 5:28 PM CDT Narrative PATHOLOGY [facility] - 06/06/2022 2:00 PM CDT EPIC results best viewed via link to PDF [facility] Norma Mims Laboratory [place] [address] Note to Patients: This report may contain [...] Gender: F : 1985 (Age: 37) Address: [address] [place] [address] [facility] #: [id number] Service: Laboratory Location: Patient Type: [facility] SPECIMEN Taken: 05/29/2022 Received: 05/29/2022 [...] 68. This HPV test was performed at [facility] in [place], [place] utilizing the Gen-Probe Aptima assay. axwe/06/06/2022 [...] mass. The HPV test was performed by [facility], [address] [place] [address]. Report Images and scanned documents, if included only viewable in PDF version The performance characteristics of some immunohistochemical stains, in-situ hybridization and fluorescence in-situ hybridization tests and immunophenotyping by flow cytometry cited in this report (if any) were determined by the Surgical Pathology Department at [facility] as part of an ongoing quality lead program and in compliance with federally mandated [...] determined by the Surgical Pathology Department of [facility]. It has not been cleared or approved by the U. S. Food and Drug Administration. Ela Amaro MD LAB CYTOLOGY ORDERABLES Final Result PATHOLOGY [facility] 3rd Floor [place], [place] [phone] * (ABNORMAL) Hepatitis panel, acute (07/21/2018 9:43 PM RECRUITER SPECIALIST) Hep A IgM Negative Negative [facility] ([place]) Comment:Testing performed by : [facility], [address] [place] [address], [id number] Hep B core IgM Negative Negative [facility] ([place]) Comment:Testing performed by : [facility], [address] [place] [address], [id number] Hep C Ab Positive(A) Negative [facility] ([place]) Comment:Testing performed by : [facility], [address] [place] [address], [id number] HepBsAg Negative Negative [facility] ([place]) Comment:Testing performed by : [facility], [address] [place] [address], [id number] Blood specimen (specimen) 07/21/2018 9:43 PM RECRUITER SPECIALIST 07/22/2018 9:44 AM RECRUITER SPECIALIST Narrative [facility] ([place]) - 07/22/2018 10:32 AM RECRUITER SPECIALIST Chris Mills MD LAB MICROBIOLOGY - GENERAL OR DERABLES Final Result [facility] ([place]) 1 [facility] Department [place] [address] from Last 3 Months or Most Recently Relevant to Health Maintenance Insurance IDPA [facility] Advance Directives For more information, please contact: [phone] * Full Code (Latest Code Status on File) Date Activated Date Inactivated Comments 07/21/2018 9:16 PM 07/23/2018 2:13 AM * Full Code Date Activated Date Inactivated Comments 07/21/2018 4:28 PM 07/21/2018 9:16 PM Care Teams Termite Control Technician Relationship Specialty Start Date End Date Corrie Monson V., CHAPIS [address] [facility] [address] MCKENNA B [facility] [address] [place] [address] [facility] - General 08/06/21
--- OUTSIDE RECORDS SUMMARY | 2025-03-19 22:19 | XMS_ITS | Referral Summary ---
Author Organization [facility] Address [address] [place] [address] Care Team Providers Care Immunologist Name Role Phone Corrie Monosn NP Primary Care Provider Allergies Active Allergy [...] (05/31/2022): Added automatically from request for surgery [id number] Chronic pelvic pain in female 05/31/2022 Overview (05/31/2022): Added automatically from request for surgery [id number] Endometriosis 05/31/2022 Overview (05/31/2022): Added automatically from request for surgery [id number] Accidental drug overdose 07/22/2018 Assessment & Plan (07/22/2018 5:59 AM PHARMACIST APPRENTICE): Patient with extensive history of drug abuse. [...] 07/22/2018 Assessment & Plan (07/22/2018 5:59 AM PHARMACIST APPRENTICE): She had been on trazodone. Currently is heavily sedated. Will hold trazodone for now Drug abuse 07/22/2018 Assessment & Plan (07/22/2018 6:02 AM PHARMACIST APPRENTICE): Patient with known history of multiple drug [...] on file Legal Sex Female 4:12 PM PHARMACIST APPRENTICE Gender Identity Female 12/17/2021 2:46 PM CDT [...] HEPATITIS PANEL, ACUTE Routine 07/21/2018 9:43 PM PHARMACIST APPRENTICE from Last 3 Months or Most Recently Relevant to Health Maintenance Results * (ABNORMAL) Pap and High Risk HPV, reflex to Genotyping (05/29/2022 4:00 PM CDT) Thin prep (Pap test) 05/29/2022 4:00 PM CDT 05/29/2022 5:28 PM CDT Narrative PATHOLOGY [facility] - 06/06/2022 2:00 PM CDT EPIC results best viewed via link to PDF [facility] Norma Mims Laboratory [place] [address] Note to Patients: This report may contain [...] Gender: F : 1985 (Age: 37) Address: [address] [place], [place] [address] Hospital #: [id number] Service: Laboratory Location: Patient Type: [facility] SPECIMEN Taken: 05/29/2022 Received: 05/29/2022 Accessioned: [...] 68. This HPV test was performed at [facility] in [place], [place] utilizing the Gen-Probe Aptima assay. axwe/06/06/2022 [...] mass. The HPV test was performed by [facility], [address] [place] [address]. Report Images and scanned documents, if included only viewable in PDF version The performance characteristics of some immunohistochemical stains, in-situ hybridization and fluorescence in-situ hybridization tests and immunophenotyping by flow cytometry cited in this report (if any) were determined by the Surgical Pathology Department at [facility] as part of an ongoing quality management coordinator program and in compliance with federally mandated [...] determined by the Surgical Pathology Department of [facility]. It has not been cleared or approved by the U. S. Food and Drug Administration. Ela Amaro MD LAB CYTOLOGY ORDERABLES Final Result PATHOLOGY [facility] 3rd Floor [place], [place] [phone] * (ABNORMAL) Hepatitis panel, acute (07/21/2018 9:43 PM PHARMACIST APPRENTICE) Hep A IgM Negative Negative [facility] ([place]) Comment:Testing performed by : [address] [address] Hep B core IgM Negative Negative [facility] ([place]) Comment:Testing performed by : [facility], [address] [place] [address]., [id number] Hep C Ab Positive(A) Negative [facility] ([place]) Comment:Testing performed by : [address] [address] HepBsAg Negative Negative [facility] ([place]) Comment:Testing performed by : [facility], [address] [place] [address]., [id number] Blood specimen (specimen) 07/21/2018 9:43 PM PHARMACIST APPRENTICE 07/22/2018 9:44 AM PHARMACIST APPRENTICE Narrative [facility] ([place]) - 07/22/2018 10:32 AM PHARMACIST APPRENTICE us Chris Mills MD LAB MICROBIOLOGY - GENERAL OR DERABLES Final Result [facility] ([place]) 1 [facility] Department [place] [address] from Last 3 Months or Most Recently Relevant to Health Maintenance Insurance IDPA [facility] Advance Directives For more information, please contact: [phone] * Full Code (Latest Code Status on File) Date Activated Date Inactivated Comments 07/21/2018 9:16 PM 07/23/2018 2:13 AM * Full Code Date Activated Date Inactivated Comments 07/21/2018 4:28 PM 07/21/2018 9:16 PM Care Teams Immunologist Relationship Specialty Start Date End Date Corrie Monson NP [address] [place] [address] [address] MCKENNA B [address] [place] [address] PCP - General 08/06/21
--- OUTSIDE RECORDS SUMMARY | 2025-03-19 22:19 | XMS_ITS | Clinical Summary ---
Author Organization [facility] Address [address] [facility] [place] [address] Care Team Providers Care Retail Management Trainee Name Role Phone Unavailable Primary Care Provider Unavailabl e Source Comments [facility],non-owned Affiliates and Associated Physician Practices is amultiple site organization consisting of ambulatory clinics and hospital sitesin [place], [place], [place] and [place]. This disclosure is being madepursuant to the Care Everywhere program and may not contain all information available regarding this patient. Last updated 18.[facility] Art[employer] It Social History Tobacco Use Types Packs/Day Years Used Date Smoking Tobacco: Never Assessed Comments Unknown Sex and Gender Information Value Date Recorded Sex Assigned at Female 08/10/2021 3:25 AM CDL B DRIVER Legal Sex Female 5:53 PM CDL B DRIVER Gender Identity Female 08/10/2021 3:25 AM CDL B DRIVER Sexual Orientation Straight 08/10/2021 3: 25 AM CDL B DRIVER Plan of Treatment Health Maintenance Due Date [...] patient's age to complete this topic [place] [address] [place] [address] MEDICAID - OUT OF [facility]
[2025-03-19 22:47] VITALS: BP 113/68; PULSE 89; RESP 17; TEMP 36.8; O2SAT 100
[2025-03-19 23:03] LABS: BEDSIDEPREGUCG Negative (Negative)
--- NOTE | 2025-03-19 23:54 | PC.NURSE ---
2335 ERP performed I&D of wound. Wound dressed per orders.
--- NOTE | 2025-03-20 00:10 | ED_ITS ---
HPI - Skin/Abscess/Foreign Bdy General Chief complaint: Skin/Abscess/Foreign Body Stated complaint: spider bite Time Seen by Provider: 03/19/25 21:59 History of Present Illness HPI narrative: 40-year-old female presenting from local substance abuse rehab for concerns of a spider bite abscess at the back of her head. She states she was been about 5 days ago and started get infected. She was placed on Bactrim 3 days ago by her doctor. No other symptoms such as fever, chills, neck stiffness, neck pain, is related with the head or neck. No jaw pain. No difficulty swallowing. Was otherwise in her normal state of health, has not taking anything for pain but has been taking antibiotics but knows that they bite has gotten worse. Tetanus is up-to-date as far she knows. No other traumas or new injuries. Related Data Home Medications ?Medication ?Instructions ?Recorded ?Confirmed ?Last Taken ?Type hydroxyzine pamoate 25 mg capsule mg 03/19/25 Unknown History multivitamin with folic acid 400 tablet PO 03/19/25 Unknown History mcg tablet (Daily-Iona (with folic acid)) sulfamethoxazole 800 tablet 03/19/25 Unknown History mg-trimethoprim 160 mg tablet Allergies Allergy/AdvReac Type Severity Reaction Status Date / Time azithromycin Allergy Unknown Dyspnea / Verified 03/19/25 22:49 SOB doxycycline Allergy Unknown Other Verified 03/19/25 22:49 Penicillins Allergy Unknown Unknown Verified 03/19/25 22:49 docusate AdvReac Unknown CAUSES Verified 03/19/25 22:49 CONSTIPATION diphenhydramine (From AdvReac Hives Verified 03/19/25 22:49 Benadryl) Review of Systems Review of Systems: As reviewed above in HPI Exam Narrative: GENERAL: [Well-appearing, well-nourished, and in no acute distress.] HEAD: The posterior occipital scalp has an area of induration with fluctuant abscess with approximate size of 2 x 3 cm. Minimal purulent drainage already noted through a punctate wound. No significant bleeding. No cellulitic skin changes extending from the wound. EYES: [PERRLA and EOMI.] ENT: Nares clear, no rhinorrhea or epistaxis. Mucous membranes moist. NECK: Supple. CHEST: [Clear to auscultation. No respiratory distress.] HEART: [Regular rate and rhythm]. No murmur heard. [Normal peripheral pulses.] ABDOMEN: [Soft, nondistended], [nontender], [No rigidity or guarding] EXTREMITIES: Normal range of motion. [No edema.] SKIN: Warm, dry, no rash. NEURO: [No focal deficits]. Alert and oriented [x3.] PSYCH: [Normal mood and affect.] Course Vital Signs Vital signs: Vital Signs Temperature 36.9 C 03/19/25 18:57 Pulse Rate 93 03/19/25 18:57 Respiratory Rate 16 03/19/25 18:57 Blood Pressure 119/60 03/19/25 18:57 Pulse Oximetry 98 03/19/25 18:57 Temperature 36.8 C 03/19/25 22:47 Pulse Rate 89 03/19/25 22:47 Respiratory Rate 17 03/19/25 22:47 Blood Pressure 113/68 03/19/25 22:47 Pulse Oximetry 100 03/19/25 22:47 Procedures Abscess I/D other: Date of Incision: 03/20/25 Time of Incision: 00:13 Side (if applicable): left Sedation/analgesia: none Local Anesthetic: lidocaine 1% and with epi Amount of anesthesia used (mL): 6 Technique: incised with #11 blade and probed loculations Amount of fluid expressed (mL): 7 Irrigation: Yes Packing used?: iodoform I&D Results: Pus and Blood Abcess I&D Additional Comments: Packing left in, dressing applied over top, flushed and irrigated multiple times with return of clear saline and minimal blood. Loculations probed and evacuated. MDM - Skin/Abscess/Foreign Bdy MDM Narrative Medical decision making narrative: 40-year-old female presenting from local substance abuse rehab for concerns of a spider bite abscess at the back of her head. She states she was been about 5 days ago and started get infected. She was placed on Bactrim 3 days ago by her doctor. No other symptoms such as fever, chills, neck stiffness, neck pain, is related with the head or neck. No jaw pain. No difficulty swallowing. Was otherwise in her normal state of health, has not taking anything for pain but has been taking antibiotics but knows that they bite has gotten worse. Tetanus is up-to-date as far she knows. No other traumas or new injuries. The posterior occipital scalp has an area of induration with fluctuant abscess with approximate size of 2 x 3 cm. Minimal purulent drainage already noted through a punctate wound. No significant bleeding. No cellulitic skin changes extending from the wound. Patient requires incision and drainage to a controlled source of her infection. She consented and this was done at bedside with compression of significant amounts of purulent material in minimal bleeding. Wound was irrigated extensively and packed with iodoform gauze. She was given wound care instructions and Toradol prescription she is currently still on Bactrim and has another several days of Bactrim which should now be more effective now that we have source control. Patient will be discharged back to her facility at her questions were answered she was given follow-up instructions. Lab Data Labs: Lab Results 03/19/25 Range/Units 23:01 POC Urine HCG, Qual Negative (Negative) Discharge Plan Discharge Clinical Impression: Abscess of scalp Patient Disposition: Home Condition: Stable Instructions: Antibiotic Form, Abscess (ED) Additional Instructions: Keep the iodoform gauze in place for 24 hours to allow for antimicrobial wound control. Take this dressing off and remove the packing in the shower with gentle traction and pressure. Change the gauze bandages twice a day unless soaked through. Return with any worsening bleeding, worsening wound or infection, new concerns or any other symptoms otherwise follow-up with regular doctor. Patient Language: French Prescriptions: New ketorolac 10 mg tablet 10 mg PO Q8H PRN (Reason: pain) 5 Days Qty: 20 0RF Rx Instructions: maximum total duration of 5 days from all oral, intranasal, or parenteral formulations No Action doxycycline monohydrate 100 mg capsule 100 mg PO BID Qty: 14 0RF prednisone 20 mg tablet 20 mg PO DAILY Qty: 7 0RF albuterol sulfate 90 mcg/actuation HFA aerosol inhaler 2 puff inhalation QID PRN (Reason: shortness of breath or wheezing) Qty: 6.7 0RF sulfamethoxazole-trimethoprim 800-160 mg tablet hydroxyzine pamoate 25 mg capsule multivitamin with folic acid [Daily-Iona (with folic acid)] 400 mcg tablet PO Follow-up/Referrals: PHYSICIAN,[facility] [Primary Care Provider] - Clifton Huff MD [Physician] - 1 Week (Scalp abscess) Time of Disposition: 00:17
[2025-03-20] MEDS: KETOROLAC 10 MG TABLET PO (00:23)
== END 2025-03-20 00:25 | disposition home or self-care (01) ==
PROVIDERS: Emergency Provider Student in an Organized Health Care Education/Training Program
DX: L02.811 Cutaneous abscess of head [any part, except face] (principal)
CPT/HCPCS: 10061; 81025; 99283; A9270; J2004